=== PATIENT | female | born 1930 | race Caucasian/White ===

== ENCOUNTER 2018-11-03 15:33 | Emergency (ER) | payer MEDICARE ==
[2018-11-03] MEDS ORDERED: Ketamine HCl 50 MG/ML IJ ONE (15:34)
[2018-11-03] MEDS ORDERED: DIPRIVAN 200 MG/20 ML IV ONE (15:34)
[2018-11-03] MEDS ORDERED: GlucaGen 1 MG IM ONE (16:15)
[2018-11-03] MEDS ORDERED: GlucaGen 1 MG ONE (16:18)
--- NOTE | 2018-11-03 16:24 | ERPHSYRPT ---
- History of Present Illness Time Seen by Provider: 11/03/18 16:07 Source: patient Exam Limitations: no limitations Patient Subjective Stated Complaint: feels like food and drink won't go down like something is closed off in her esophagus/throat Triage Nursing Assessment: Pt reports that she is having issues swallowing, she states that it feels like food and drink get stuck in her esophagus and then later she coughs of a lot of mucus and the food comes up with it, she thought she choked on a piece of chicked and that is what started this, afraid to go to sleep thinking she will choke, denies pain, no other issues at this time Physician History: Pt states, she ate a chicken leg yesterday at 14:00 PM, started choking on it, coughed up some, but still feels something "stuck in there", she is able to drink some fluids, but coughs up phlegm few minutes later. She denies severe pain, shortness of breath, vomiting, no fever, chills, or any distress. Timing/Duration: yesterday Severity: moderate Modifying Factors: Improves With: eating Associated Symptoms: denies symptoms Allergies/Adverse Reactions: penicillin G Allergy (Verified 11/03/18 15:55) Home Medications: Aspirin 1 tablet PO DAILY 11/23/14 [History] Labetalol HCl 100 mg [Trandate 100 MG] 50 mg PO UD 03/26/15 [History] Hx Tetanus, Diphtheria Vaccination/Date Given: (unknown) Hx Influenza Vaccination/Date Given: Yes (2014) Hx Pneumococcal Vaccination/Date Given: Yes (2014) - Review of Systems Constitutional: No Symptoms Ears, Nose, & Throat: No Symptoms Respiratory: No Symptoms Cardiac: No Symptoms Abdominal/Gastrointestinal: Dysphagia Genitourinary Symptoms: No Symptoms Musculoskeletal: No Symptoms Skin: No Symptoms Neurological: No Symptoms All Other Systems: Reviewed and Negative - Past Medical History Pertinent Past Medical History: Yes Neurological History: Stroke ENT History: No Pertinent History Cardiac History: No Pertinent History Respiratory History: No Pertinent History Endocrine Medical History: No Pertinent History Musculoskeletal History: Osteoarthritis GI Medical History: Colitis, Diverticulitis History: No Pertinent History Psycho-Social History: No Pertinent History Female Reproductive Disorders: No Pertinent History - Past Surgical History Past Surgical History: Yes Neuro Surgical History: No Pertinent History Cardiac: Cardiac Catheterization, Cardiac Stent Respiratory: No Pertinent History Gastrointestinal: No Pertinent History Genitourinary: No Pertinent History Musculoskeletal: Joint Replacement, Orthopedic Surgery Female Surgical History: No Pertinent History Other Surgical History: Cleaned out cariod artery, Ovary removed, right total knee replacement - Social History Smoking Status: Former smoker Exposure to second hand smoke: No Alcohol Use: Socially Drug Use: none Patient Lives Alone: Yes Significant Family History: no pertinent family hx - Nursing Vital Signs Nursing Vital Signs: Initial Vital Signs Temperature 98.0 F 11/03/18 15:42 Pulse Rate 85 11/03/18 15:42 Blood Pressure 165/94 11/03/18 15:42 O2 Sat by Pulse Oximetry 97 11/03/18 15:42 Pain Scale Pain Intensity 0 - Physical Exam General Appearance: no apparent distress Eye Exam: eyes nml inspection Ears, Nose, Throat Exam: normal ENT inspection, pharynx normal, moist mucous membranes Neck Exam: normal inspection, non-tender, No JVD Respiratory Exam: normal breath sounds, lungs clear, airway intact, No chest tenderness, No respiratory distress Cardiovascular Exam: regular rate/rhythm, normal heart sounds, normal peripheral pulses, No murmur Gastrointestinal/Abdomen Exam: soft, normal bowel sounds, No tenderness, No distention, No mass, No guarding, No rebound Back Exam: normal inspection, No CVA tenderness Extremity Exam: normal inspection Neurologic Exam: alert, oriented x 3, cooperative, normal mood/affect Skin Exam: normal color, warm, dry, No rash Lymphatic Exam: No adenopathy SpO2 Interpretation: normal SpO2: 97 O2 Delivery: Room Air - Course Nursing assessment & vital signs reviewed: Yes - Radiology Exams Chest X-ray Interpretation: Interpreted by me, Negative Ordered Tests: Active Orders 24 hr Category Date Time Status IV Insertion STAT Care 11/03/18 16:42 Active CHEST 2 VIEWS (PA AND LAT) Stat Exams 11/03/18 16:14 Taken Medication Summary Generic Name Dose Route Start Last Admin Trade Name Freq PRN Reason Stop Dose Admin Lactated Ringer's 1,000 mls @ 50 mls/hr 11/03/18 17:00 11/03/18 17:15 Lactated Ringers IV 12/03/18 16:59 50 mls/hr .Q20H CHRISTIANA Administration Discontinued Medications Generic Name Dose Route Start Last Admin Trade Name Freq PRN Reason Stop Dose Admin Glucagon 1 mg 11/03/18 16:15 11/03/18 16:21 Glucagen 1 Mg IM 11/03/18 16:16 1 mg STAT ONE Administration Glucagon Confirm 11/03/18 16:18 Glucagen 1 Mg Administered 11/03/18 16:19 Dose 1 mg .ROUTE .STK-MED ONE Lactated Ringer's Confirm 11/03/18 16:58 Lactated Ringers Administered 11/03/18 16:59 Dose 1,000 mls @ ud IV .STK-MED ONE Labetalol HCl 20 mg 11/03/18 16:42 11/03/18 16:59 Trandate 20 Mg/5 Ml Syringe IV 11/03/18 16:43 20 mg STAT ONE Administration Labetalol HCl Confirm 11/03/18 16:58 Trandate 20 Mg/5 Ml Syringe Administered 11/03/18 16:59 Dose 20 mg IV .STK-MED ONE - Progress Progress: unchanged Progress Note: 11/03/18 18:05 Pt was given 20 mg Labetalol iv, her blood pressure improved, did not improved her dysphagia after Glucagon, we called Dr Madiha Grimes, surgeon, he will see her in ED, and admit for observation and procedure ( Upper endoscopy and foreign body removal) Patient was informed and agreed. Discussed with : Supriya Will see patient in: ED Counseled pt/family regarding: diagnosis, need for follow-up, rad results - Departure Departure Disposition: Observation Clinical Impression: Foreign body alimentary tract Qualifiers: Encounter type: initial encounter Qualified Code(s): T18.9XXA - Foreign body of alimentary tract, part unspecified, initial encounter Dysphagia Qualifiers: Dysphagia type: esophageal phase Qualified Code(s): R13.10 - Dysphagia, unspecified Condition: Stable Critical Care Time: No
[2018-11-03] MEDS ORDERED: TRANDATE 20 MG/5 ML SYRINGE IV ONE ×2 (16:42→16:58)
[2018-11-03] MEDS ORDERED: Lactated Ringers 1,000 ML IV ONE (16:58)
[2018-11-03] MEDS ORDERED: Lactated Ringers 1,000 ML IV SCH (17:00)
[2018-11-03 18:59] VITALS: BP 156/72; PULSE 66; O2SAT 95
--- NOTE | 2018-11-04 08:25 | OP ---
SURGERY DATE/TIME: 11/03/2018 1746 PREOPERATIVE DIAGNOSIS: Lodged foreign body in the esophagus. POSTOPERATIVE DIAGNOSIS: Lodged foreign body in the esophagus. PROCEDURE: EGD for foreign body. SURGEON: Darron Grimes M.D. ANESTHESIA: MAC. COMPLICATIONS: None. CONDITION: Stable. INDICATION: A patient requiring EGD. 88 year-old has a spit basin at her bedside, has an occluded esophagus. DESCRIPTION OF PROCEDURE: MAC sedation provided. The scope introduced and it was gently pushed forward. The stricture was about size 40 and the bolus went through this. A small amount of residual bolus was then pushed through. It was irrigated. It was open. It was clean. It was clear. There was no aspiration. The patient tolerated the procedure well under MAC sedation.
--- NOTE | 2018-11-04 08:56 | XRAY ---
Indication: Dysphagia. Comparison: March 26, 2018. PA/lateral chest unchanged again demonstrating COPD, bibasilar atelectasis/scarring, and right upper lobe calcified granuloma. No focal infiltrate, consolidation, or large effusion. Heart is not enlarged. Aorta remains arteriosclerotic and slightly tortuous. Bony thorax intact again with osteopenia, degenerative changes, and right carotid endarterectomy. Impression: Stable nonacute chest with chronic features.
== END 2018-11-03 19:45 | disposition home or self-care (01) ==
LOC: ED 15:33 → MED SURG 17:30 → UNDOADMOB 17:30 → MED SURG 18:25 → ED 19:45 → UNDODISOB 19:45
DX: T18.9XXA Foreign body of alimentary tract, part unspecified, initial encounter (principal); R13.10 Dysphagia, unspecified
CPT/HCPCS: 36000; 71046; 96372; 96374; 99140; 99284; J1610; J2704